=== PATIENT | female | born 1950 | race Caucasian/White ===

== ENCOUNTER → 2017-09-26 10:13 | Outpatient (CLI) | payer MEDICARE, SELFPAY ==
--- NOTE | 2017-09-26 10:18 | XR_ITS ---
XR DEXA axial skeleton HISTORY: ITS.REASON: OSTEOPOROSIS ORDERING PHYSICIAN: Michael Kendrick MD PATIENT AGE: 67 years COMPARISON: 10/29/2015 FINDINGS: The BMD measured at the Right femoral neck is 0.780 g/cm squared with a T score of -1.9. This is considered Osteopenic according to the World Health Organization criteria. Fracture risk is Moderate. Treatment is advised. L1-L4 density has a T score of -1.8. The L-spine density is decreased by 2%. The hip density is unchanged. IMPRESSION: Osteopenia with moderate fracture risk. Recommend treatment. Suggest follow-up exam September 2019
== END ==
PROVIDERS: Family Provider Internal Medicine Adolescent Medicine; PCP Internal Medicine Adolescent Medicine; Visit Provider Internal Medicine Adolescent Medicine
DX: M81.0 Age-related osteoporosis without current pathological fracture (principal)
CPT/HCPCS: 77080

== ENCOUNTER → 2019-07-30 10:27 | Outpatient (CLI) | payer MEDICARE, SELFPAY ==
--- NOTE | 2019-07-30 11:00 | ECG_ITS ---
APPROVED REPORT Exam: Resting ECG HR:65 bpm ECG Measurements Heart Rate 65 AXES MO 136 P 17 QRSd 82 QRS 3 QT 414 T 101 QTc 430 <Conclusion> Normal sinus rhythm Late r wave progression Abnormal ECG Electronically signed by : Michael Kendrick, 07/31/2019 08:20:36
[2019-07-30 11:15] LABS: Basophils # 0.1 K/mm3 (0-0.2); Basophils % 1.5 % (0.1-2.0); Eosinophils % 0.8 % (0.1-12.0); Hematocrit 42.9 % (37.0-47.0); Lymphocytes # 0.9 K/mm3 (0.7-4.5); Lymphocytes % 26.2 % (10-50); Mean Corpuscular Hemoglobin 30.4 pg (27.0-31.2); Mean Corpuscular Volume 87.1 fl (81-99); Mean Platelet Volume 7.9 fl (7.4-10.4); Monocytes # 0.2 K/mm3 (0.1-1.0); Neutrophils # 2.1 K/mm3 (1.8-7.8); Neutrophils % 64.5 % (37.0-80.0); Platelet Count 243 K/mm3 (142-424); Red Blood Count 4.93 M/mm3 (4.20-5.40); Red Cell Distribution Width 12.8 % (11.5-17.5); White Blood Count 3.2 K/mm3 (4.8-10.8)
[2019-07-30 12:13] LABS: Chloride 102 mmol/L (98-107)
[2019-07-30 12:14] LABS: Sodium 138 mmol/L (136-145)
[2019-07-30 12:16] LABS: Alanine Aminotransferase 25 U/L (12-78); Alkaline Phosphatase 69 U/L (38-126); Aspartate Amino Transferase 25 U/L (14-36); Bilirubin,Total 1.3 mg/dl (0.2-1.3); Blood Urea Nitrogen 21 mg/dl (7-17); Estimated Glomerular Filt Rate 71 ml/min (>60); GFR (African American) 86 ML/MIN (>60)
[2019-07-30 12:17] LABS: Albumin Level 4.7 g/dl (3.5-5.0); Albumin/Globulin Ratio 1.9 (1.1-1.8); Calcium 9.3 mg/dl (8.4-10.2); Carbon Dioxide 26 mmol/L (22.0-30.0); Globulin 2.5 g/dL (1.3-3.2); Glucose 91 mg/dl (74-100); Total Protein,Serum 7.2 g/dl (6.3-8.2)
[2019-07-31 13:54] LABS: Covid-19 Nasal PCR Sendout Lex NOT DETECTED
--- NOTE | 2019-07-31 15:37 | PC.NURSE ---
notified pt and Miriam RN of negative COVID 19 results.
== END ==
PROVIDERS: Visit Provider Otolaryngology
DX: Z01.818 Encounter for other preprocedural examination (principal); C44.311 Basal cell carcinoma of skin of nose
CPT/HCPCS: 36415; 80053; 85025; 93005; U0003

== ENCOUNTER 2019-08-01 07:14 | Day surgery (SDC) | payer MEDICARE, SELFPAY ==
[2019-07-30 13:54] VITALS: BMI 27.4
[2019-08-01 07:33] VITALS: BP 150/80; PULSE 88; RESP 18; TEMP 36.9; O2SAT 96
[2019-08-01 09:42] VITALS: BP 139/92; PULSE 69; RESP 18; TEMP 36.4; O2SAT 97
[2019-08-01 09:57] VITALS: BP 151/96; PULSE 90; RESP 18; O2SAT 97
--- NOTE | 2019-08-01 10:00 | P.PN_ITS ---
[facility] [place] Anesthesia Checklist - Patient Identification Patient Identification: Arm Band - Structural Data Admitted From: Home Planned Operative Procedure/s: excision neoplasm tip of nose Consent for Planned Operative Procedure(s) Verified: Yes Verified Documents: Surgical Consent, History and Physical - NPO Status Verified Time NPO: 00:00 - Additional verifications Anesthesia Reactions: No Hx Blood Transfusions: No Blood Transfusion Reaction: No - Airway Assessment C-Spine Mobility Assessed: Yes (mp2) TMJ Mobility Assessed: Yes Dentition: Good Dentition - Neurological Assessment Level of Consciousness: Awake, Alert - Anesthesia Plan Anesthesia Risk discussed: Yes Anesthesia Plan: Verified ASA Class: II Anesthesia Type: MAC [facility] [place] History I have reviewed the patient's past medical history: Yes Medical History: Reports:: Anxiety, Hyperlipidemia Denies:: Cancer, Diabetes Mellitus Type 1, Diabetes Mellitus Type 2, Internal Pacemaker, MRSA, Seizures *Have you ever received a pneumonia vaccine?: Yes *Have you received a flu vaccine this season?: Yes Other Medical History: Reports: Hypothyroidism. Denies: Blood Transfusion Reaction Anesthesia experience/problems:: nac Other Surgeries: Yes: Tubal Ligation. No: Pacemaker Amputation: No Fractures: No - *Social History Educational Level: Completed High School Smoking Status: Never smoker Alcohol Intake: never Substance Use Type: denies use *Occupational Status:: retired Housing: house Household Members: spouse *Travel in the last 8 weeks: None Family Hx:: Cancer, Diabetes, Heart Attack, Hyperlipidemia, Hypertension, Kidney Disease, Stroke, Thyroid Disorder
[2019-08-01 10:12] VITALS: BP 135/72; PULSE 80; RESP 18; O2SAT 98
--- NOTE | 2019-08-01 12:43 | P.OP_ITS ---
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 Leukopenia Post-op Diagnosis:: same Procedure performed:: Excision of malignant neoplasm nasal tip 2.2 cm with full-thickness skin graft repair Surgeon:: Clayton De Oliveira MD WRAPPING CHECKER:: Deniz Mar Anesthesia: MAC Estimated blood loss (mL): 4 Operative findings:: same Operative note:: With the patient under a MAC anesthetic the face was prepped and draped. The eyes were protected with Steri-Strips. The left ear was prepped and draped. The perilesional area on the nasal tip was infiltrated with a total of 3 cc of 2% lidocaine with epi. The marcie out was incised and the lesion was excised to the level of the lower lateral cartilages. The specimen was tagged and submitted for pathology. The left ear which had been prepped previously was infiltrated with 3 cc of 2% lidocaine with epinephrine on the posterior aspect. A donor skin graft measuring 2.5 cm was marked out on the posterior aspect of the left ear. Skin subcutaneous tissue was incised and the graft was excised, using tenotomy scissors the graft was defatted. The donor site bleeding was stopped with cautery and the donor site defect was repaired with a continuous 4- 0 nylon suture. a Dermabond dressing was applied. The graft was then coapted to the recipient site with multiple interrupted 4-0 nylon sutures. An excellent adaptation was obtained. A cottonoid bolster was placed over the graft in order to put some pressure on the graft site. A Dermabond dressing and a dot dressing was applied. The patient tolerated the procedure well and was sent to recovery in good general condition. Condition: stable Disposition: PACU Complications:: none
== END 2019-08-01 10:12 | disposition home or self-care (01) ==
LOC: OR 07:16
PROVIDERS: PCP Internal Medicine Adolescent Medicine; Visit Provider Otolaryngology
DX: C44.311 Basal cell carcinoma of skin of nose (principal); E03.9 Hypothyroidism, unspecified; Z79.899 Other long term (current) drug therapy
CPT/HCPCS: 11643; 15760; 88305; 96374; 96375

== ENCOUNTER → 2019-10-09 16:19 | Outpatient (CLI) | payer MEDICARE, SELFPAY ==
--- NOTE | 2019-10-09 16:28 | XR_ITS ---
PROCEDURE: XR CHEST 2V CLINICAL HISTORY: LEFT SIDED CHEST WALL Posttraumatic pain COMPARISON: CXR CHEST(2 VIEWS-NOT PORTABLE) from 05/13/[address] CHEST W/ CONTRAST from 05/20/2013 CXR CHEST(2 VIEWS-NOT PORTABLE) from 04/25/2015 FINDINGS: The cardiomediastinal silhouette and pulmonary vascularity are within normal limits. The lungs are clear without infiltrates, suspicious nodules, or pleural effusions. There are nondisplaced fractures of the left 5th and 6th ribs which are better demonstrated on the rib detail images. No evidence of pneumothorax IMPRESSION: Nondisplaced left 5th and 6th rib fractures Dictated by: Dmitriy Quezada MD 10/09/2019 17:52 Electronically signed by Dmitriy Quezada MD in [place] 10/09/2019 17:52
--- NOTE | 2019-10-09 16:29 | XR_ITS ---
PROCEDURE: XR RIBS LT 2V CLINICAL INDICATION: LEFT SIDED CHEST WALL PAIN Injury with pain COMPARISON: No exams were available for comparison FINDINGS: Nondisplaced fractures are present involving the left 5th and 6th ribs anterior laterally. IMPRESSION: Nondisplaced left 5th and 6th rib fracture Dictated by: Dmitriy Quezada MD 10/09/2019 17:51 Electronically signed by Dmitriy Quezada MD in [place] 10/09/2019 17:51
== END ==
PROVIDERS: PCP Internal Medicine Adolescent Medicine; Visit Provider Internal Medicine Adolescent Medicine
DX: R07.89 Other chest pain (principal)
CPT/HCPCS: 71046; 71100

== ENCOUNTER 2020-09-01 15:48 | Emergency (ER) | payer MEDICARE, SELFPAY ==
[2020-09-01 15:50] VITALS: BP 106/58; PULSE 84; RESP 16; TEMP 36.6; O2SAT 97; BMI 26.6
--- NOTE | 2020-09-01 15:53 | XR_ITS ---
PROCEDURE: XR ANKLE RT MIN 3V CLINICAL INDICATION: FELL DOWN RAMP Pain COMPARISON: No exams were available for comparison FINDINGS: There is a minimally displaced oblique fracture involving the distal aspect the fibula exiting medially at the level of the ankle joint with some mild widening of the ankle mortise. There is overlying soft tissue swelling. The joint spaces are well-preserved. No significant degenerative/arthritic changes. No erosive changes evident. Other findings:None. IMPRESSION: Mildly displaced fracture distal fibula with mild widening of the ankle mortise Dictated by: Dmitriy Quezada MD 09/01/2020 16:41 Dmitriy Quezada MD in [place] 09/01/2020 16:41
--- NOTE | 2020-09-01 15:53 | XR_ITS ---
PROCEDURE: XR FOOT RT MIN 3V CLINICAL INDICATION: FELL DOWN RAMP Pain COMPARISON: No exams were available for comparison FINDINGS: There are osteoarthritic changes at the 1st MTP joint. Bony hypertrophy involves the distal aspect of the 1st metatarsal. No fracture or dislocation. 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
--- NOTE | 2020-09-01 16:38 | HMH.EDUTC ---
[facility] [place] Disposition Clinical Impression: Fracture of distal fibula Qualifiers: Encounter type: initial encounter Fracture type: closed Fracture morphology: unspecified fracture morphology Laterality: right Qualified Code(s): S82.831A - Other fracture of upper and lower end of right fibula, initial encounter for closed fracture Disposition: Home, Self-Care Condition on Discharge: Good Instructions: How to Choose and Use a Wheelchair, How to Use Crutches, Ankle Fracture, DI for Ankle Fracture, How To Perform RICE (Rest, Ice, Compress, Elevate) Additional Instructions: *No weight bearing use crutches or wheel chair to get around *RICE, Rest the extremity, Ice 15-20 minutes 3-4 times daily, Compress- wear the joo wrap as discussed as much as possible to help reduce swelling and pain, Elevate the extremity when at rest *Joo wrap/Orthoglass is for support and help control swelling, Be sure that is not to tight but not to loose either *Elevate when resting *Etodolac as prescribed for pain an inflammation. If need something more can take Tylenol in between doses of Etodolac to help Immediately follow up with your family doctor for new or worsening of symptoms, or no noticeable improvement over the next 3-5 days Follow up with Dr Mckeon as scheduled on Monday09/07/20 at 930am Straight to ER if any life threatening symptoms Prescriptions: Wheelchair 1 each MISCELLANE DIRECTED #1 each Prescription Printed Referrals: Michael Kendrick MD [Primary Care Provider] - Leonora Zimmerman DPM [Staff Physician] - 09/07/20 9:30 am Time of Disposition: 17:44 Medical Decision Making - Judson Inquiry Pt receiving controlled substance: No Judson was queried for this patient: No Vital Signs: 09/01/20 15:50 09/01/20 17:11 Temperature 97.8 F 97.8 F Temperature Source Oral Pulse Rate 84 Pulse Rate [Right Brachial] 84 Respiratory Rate 16 16 Blood Pressure 106/58 L Blood Pressure [Right Arm] 106/58 L Blood Pressure Mean [Right Arm] 74 Blood Pressure Source [Right Arm] Automatic Cuff Blood Pressure Position [Right Arm] Sitting 02 Sat by Pulse Oximetry 97 Oxygen Delivery Method Room Air - Radiology Data #1 Image(s): Foot/Toes Image Reviewed: Yes I have reviewed radiologist's interpretation 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 #2 Image(s): Ankle Image Reviewed: Yes I have reviewed radiologist's interpretation Mildly displaced fracture distal fibula with mild widening of the ankle mortise - Physician Consults Physician Consulted: Elsie Time: 16:50 Reason -: Podiatry Eval/Care Comment/Response: Spoke with Alisa Oliveirakindra from Podiatry Clinic and informed her of finding on Xray of fracture of mildly displaced distal fibula fracture and her and Dr Zimmerman viewed xray and agreed they advised would come to [facility] and place patient in orthoglass splint and discuss further treatment and appointment Medical Decision Narrative: Initially called Orthopedic clinic and informed them of patient in [facility] with distal fibula ankle fracture and advised to call Podiatry Dr Zimmerman at bedside placing orthoglass splint and talking with patient, Dr Zimmerman spoke with patient about plan for treatment and appointment on Monday and need to repeat xrays prior to her appointment and patient verbalized understanding, orthoglass splint placed by Dr Zimmerman and Dr Zimmerman advised to place patient on crutches and write for wheelchair to aid in patient getting around Patient was educated on RICE and advised No weight bearing on foot/ankle and patient verbalized understanding patient advised that she has Etodolac at home that she is prescribed and advised to continue taking it as prescribed for pain [facility] [place] HPI - General Stated complaint: AO 09/01@1500@home Injured R Ankle Time Seen by Provider: 09/01/20 16:38 Mode of Arrival: Ambulatory Source of Information: Patient, Spouse Limitations: No Limitations Description of Symptoms (Recalled from Triage Doc. by RN): PATIENT C
[2020-09-01 17:11] VITALS: BP 106/58; PULSE 84; RESP 16; TEMP 36.6; O2SAT 97
== END 2020-09-01 17:45 | disposition home or self-care (01) ==
PROVIDERS: Emergency Provider Nurse Practitioner; PCP Internal Medicine Adolescent Medicine
DX: S82.831A Other fracture of upper and lower end of right fibula, initial encounter for closed fracture (principal); W01.0XXA Fall on same level from slipping, tripping and stumbling without subsequent striking against object, initial encounter; Y92.019 Unspecified place in single-family (private) house as the place of occurrence of the external cause; F41.9 Anxiety disorder, unspecified; E78.5 Hyperlipidemia, unspecified; E03.9 Hypothyroidism, unspecified
CPT/HCPCS: 29515; G0463; 73610; 73630; 99203

== ENCOUNTER → 2020-09-07 09:47 | Outpatient (CLI) | payer MEDICARE, SELFPAY ==
--- NOTE | 2020-09-07 09:56 | XR_ITS ---
PROCEDURE: XR ANKLE WT BEARING RT MIN 3V CLINICAL INDICATION: ankle pain COMPARISON: CR XR ANKLE RT MIN 3V from 09/01/2020 FINDINGS: Oblique fracture of the distal fibula again noted with mild lateral displacement of the distal fracture fragment. Ankle joint mortise appears intact with weight-bearing. There is overlying splint material in place. No acute abnormality. IMPRESSION: Oblique fracture of the distal fibula again noted similar to prior exam with overlying splint material in place. Ankle joint mortise appears intact. Dictated by: Juan Singh 09/07/2020 10:10 Juan Singh in [place] 09/07/2020 10:10
== END ==
PROVIDERS: PCP Internal Medicine Adolescent Medicine; Visit Provider Podiatrist
DX: S82.831A Other fracture of upper and lower end of right fibula, initial encounter for closed fracture (principal)
CPT/HCPCS: 73610

== ENCOUNTER → 2020-10-05 11:37 | Outpatient (CLI) | payer MEDICARE, SELFPAY ==
--- NOTE | 2020-10-05 11:44 | XR_ITS ---
PROCEDURE: XR ANKLE WT BEARING RT MIN 3V CLINICAL INDICATION: FRACTURE FOLLOW UP COMPARISON: CR XR ANKLE RT MIN 3V from 09/01/2020 CR XR ANKLE WT BEARING RT MIN 3V from 09/07/2020 FINDINGS: Bones: There is an oblique fracture involving the distal fibula at the level of the ankle joint with minimal lateral displacement of the distal fracture fragment and with good alignment. The ankle mortise appears slightly widened similar to the previous exam. Joints: The joint spaces are well-preserved. No significant degenerative/arthritic changes. No erosive changes evident. Other findings:Cast is in place. IMPRESSION: Status post closed reduction distal fibular fracture with good alignment and mild widening of the ankle mortise similar to the previous exam except for placement of the splint with a cast. Dictated by: Dmitriy Quezada MD 10/05/2020 12:20 Dmitriy Quezada MD in [place] 10/05/2020 12:20
== END ==
PROVIDERS: PCP Internal Medicine Adolescent Medicine; Visit Provider Podiatrist
DX: T14.8XXA Other injury of unspecified body region, initial encounter (principal); S82.891D Other fracture of right lower leg, subsequent encounter for closed fracture with routine healing
CPT/HCPCS: 73610

== ENCOUNTER → 2020-11-05 11:08 | Outpatient (CLI) | payer MEDICARE, SELFPAY ==
--- NOTE | 2020-11-05 11:15 | XR_ITS ---
PROCEDURE: XR ANKLE WT BEARING RT MIN 3V CLINICAL INDICATION: fracture follow up COMPARISON: CR XR ANKLE RT MIN 3V from 09/01/2020 CR XR ANKLE WT BEARING RT MIN 3V from 09/07/2020 CR XR ANKLE WT BEARING RT MIN 3V from 10/05/2020 FINDINGS: The cast has been removed. Minimally displaced fracture once again noted involving the distal aspect of the fibula with the medial aspect of the fracture at the level of the ankle joint. Callus formation is developing at the fracture site. The ankle mortise is slightly widened. Talar dome has an unremarkable appearance. There is mild displacement of the distal fracture fragment posteriorly. IMPRESSION: No change healing mildly displaced distal fibular fracture with mild widening of the ankle mortise. Dictated by: Dmitriy Quezada MD 11/05/2020 11:30 Dmitriy Quezada MD in [place] 11/05/2020 11:30
== END ==
PROVIDERS: PCP Internal Medicine Adolescent Medicine; Visit Provider Podiatrist
DX: T14.8XXA Other injury of unspecified body region, initial encounter (principal); S82.891G Other fracture of right lower leg, subsequent encounter for closed fracture with delayed healing
CPT/HCPCS: 73610

== ENCOUNTER → 2020-12-14 09:20 | Outpatient (CLI) | payer MEDICARE, SELFPAY ==
--- NOTE | 2020-12-14 09:24 | XR_ITS ---
PROCEDURE: XR ANKLE WT BEARING RT MIN 3V CLINICAL INDICATION: fracture follow up COMPARISON: CR XR ANKLE RT MIN 3V from 09/01/2020 CR XR ANKLE WT BEARING RT MIN 3V from 09/07/2020 CR XR ANKLE WT BEARING RT MIN 3V from 10/05/2020 CR XR ANKLE WT BEARING RT MIN 3V from 11/05/2020 FINDINGS: There is a minimally displaced oblique distal fibular fracture. The distal fracture fragment is displaced dorsally and laterally by 2 mm overall not significantly changed. There is minimal widening of the ankle mortise. IMPRESSION: No change minimally displaced distal fibular fracture with mild widening of the ankle mortise Dictated by: Dmitriy Quezada MD 12/14/2020 15:50 Dmitriy Quezada MD in [place] 12/14/2020 15:50
== END ==
PROVIDERS: PCP Internal Medicine Adolescent Medicine; Visit Provider Podiatrist
DX: S82.839A Other fracture of upper and lower end of unspecified fibula, initial encounter for closed fracture (principal); Z20.822 Contact with and (suspected) exposure to COVID-19
CPT/HCPCS: 73610; C9803; U0003; U0005

== ENCOUNTER 2020-12-16 06:40 | Day surgery (SDC) | payer MEDICARE, SELFPAY ==
[2020-12-14 14:29] VITALS: BMI 26.6
[2020-12-16 07:24] VITALS: BP 138/81; PULSE 86; RESP 18; TEMP 36.2; O2SAT 99
--- NOTE | 2020-12-16 07:57 | HMH.ANESCL ---
[facility] Anesthesia Checklist - Patient Identification Patient Identification: Arm Band, Verbal (Name & ) - Structural Data Admitted From: Home Planned Operative Procedure/s: colonoscopy Consent for Planned Operative Procedure(s) Verified: Yes Verified Documents: History and Physical - NPO Status Verified Time NPO: 00:00 - Additional verifications Patient : No Anesthesia Reactions: No Hx Blood Transfusions: No Blood Transfusion Reaction: No Cephalosporin Allergy: No Previous Colonoscopy: Yes - Cardiovascular Assessment Heart Sounds: S1 & S2 Pulse Strength: Baseline Pulse Rhythm: Regular Peripheral Edema: No - Airway Assessment C-Spine Mobility Assessed: Yes TMJ Mobility Assessed: Yes Dentition: Good Dentition - Neurological Assessment Level of Consciousness: Awake, Alert, Appropriate Hx Seizures: No Numbness or tingling in extremities: No - Anesthesia Plan Anesthesia Risk discussed: Yes Anesthesia Plan: Verified ASA Class: II Anesthesia Type: MAC [facility] History I have reviewed the patient's past medical history: Yes Medical History: Reports:: Anxiety, Hyperlipidemia Denies:: Cancer, Diabetes Mellitus Type 1, Diabetes Mellitus Type 2, Internal Pacemaker, MRSA, Seizures *Have you ever received a pneumonia vaccine?: Yes *Have you received a flu vaccine this season?: Yes Other Medical History: Reports: Hypothyroidism. Denies: Blood Transfusion Reaction Anesthesia experience/problems:: none Other Surgeries: Yes: Colonoscopy, Skin Cancer Excision, Tubal Ligation. No: Pacemaker Amputation: No Fractures: Yes (right ankle) - *Social History Last grade of school completed: High school graduate Smoking Status: Never smoker Alcohol Intake: never Alcohol Intake Frequency:: other Substance Use Type: denies use *Occupational Status:: retired Housing: house Household Members: spouse *Travel in the last 8 weeks: None - Psychiatric History Pschychiatric History:: Reports:: Anxiety Family Hx:: Cancer
[2020-12-16 07:59] VITALS: O2SAT 96
--- NOTE | 2020-12-16 08:37 | HMH.SCOPE ---
- Procedure: Date: 12/16/20 Patient Date of :: 1950 Procedure Performed:: Total colonoscopy with polypectomy by snare and biopsy forceps Indications:: Patient is a 70-year-old female who presents for colonoscopy. I had performed colonoscopy on her on 10/12/2010. She had diverticulosis but no adenomatous polyps. Patient does state that relatively recently subsequently one of her sisters has been diagnosed with colon cancer. She also states that one of her nephews has been diagnosed with colon cancer. Also, I had performed colonoscopy on another sister recently and she had adenomatous polyps. Patient is without complaints. She does state that she has a rectocele which has been present for a longstanding time causing some minor constipation occasionally. Performing Provider:: Edilson Varma MD Referring Provider:: Michael Kendrick MD Sedation:: MAC sedation Procedure:: Patient was positioned in lateral position. Adequate intravenous sedation was achieved. Digital examination was performed which was unremarkable. Variable stiffness Olympus colonoscope was inserted via the anus. Is advanced to the cecum. Ileocecal valve was clearly identified. She did have some significant floppiness and redundancy of the sigmoid colon. Within the ascending colon just distal to the ileocecal valve there was a ridge polyp which was removed with cold cutting snare. This could be serrated adenoma. Colonoscope was withdrawn through the remainder of the colon. The distal transverse colon there was a possible serrated adenoma removed with cold snare. She had significant sigmoid diverticulosis. At the rectosigmoid region there was a hyperplastic appearing polyp removed with biopsy forceps. Retroflexion within the rectum revealed nonpathologic internal hemorrhoids. Colonoscope was withdrawn. Findings:: Polyps as noted above Significant sigmoid diverticulosis Nonpathologic internal hemorrhoids Recommendations:: Pending pathology possibly repeat colonoscopy 3 years given family history and polyps Complications:: None immediately apparent Estimated blood obtained (mL): 2
[2020-12-16 08:39] VITALS: BP 106/50; PULSE 81; RESP 18; TEMP 36.3; O2SAT 95
[2020-12-16 08:49] VITALS: BP 115/71; PULSE 74; RESP 18; O2SAT 94
[2020-12-16 08:59] VITALS: BP 132/67; PULSE 69; RESP 18; O2SAT 95
[2020-12-16 09:09] VITALS: BP 126/72; PULSE 70; RESP 18; O2SAT 95
== END 2020-12-16 09:09 | disposition home or self-care (01) ==
LOC: OUTP 06:42
PROVIDERS: PCP Internal Medicine Adolescent Medicine; Visit Provider Surgery
PROC: 0DJD8ZZ Inspection of Lower Intestinal Tract, Via Natural or Artificial Opening Endoscopic (ICD-10-PCS; principal; 2020-12-16 08:30)
DX: Z12.11 Encounter for screening for malignant neoplasm of colon (principal); K56.2 Volvulus; K63.5 Polyp of colon; K57.32 Diverticulitis of large intestine without perforation or abscess without bleeding; K64.0 First degree hemorrhoids; Z80.0 Family history of malignant neoplasm of digestive organs; E78.5 Hyperlipidemia, unspecified; F41.9 Anxiety disorder, unspecified
CPT/HCPCS: 45380; 45385; 88305

== ENCOUNTER → 2020-12-21 07:41 | Outpatient (CLI) | payer MEDICARE, SELFPAY ==
--- NOTE | 2020-12-21 07:42 | CT_ITS ---
PROCEDURE: CT ANKLE RT WO CON CLINICAL HISTORY: fracture evaluation COMPARISON: CR XR ANKLE RT MIN 3V from 09/01/2020 CR XR ANKLE WT BEARING RT MIN 3V from 12/14/2020 TECHNIQUE: Axial images obtained with sagittal and coronal reformats. All CT scans at the facility use one or more dose reduction, viz: automated exposure control, ma/kV adjustment per patient size (including targeted exams where dose is matched to indication, i.e. head), or iterative reconstruction technique. FINDINGS: There is a minimally displaced fracture oblique in nature involving the distal fibula directed posterior to anterior in oblique nature exiting at the level of ankle joint. There is 3 mm dorsal and 2 mm lateral displacement of the distal fracture fragment. There appears to be non bony union. There is sclerosis of the fracture margins. The ankle mortise is slightly widened with minimal lateral displacement of the talus. Small sclerotic focus involves the neck of the talus medially and may be due to a bone island. Osteoarthritic changes are present at the 1st MTP joint. There is some mild soft tissue swelling at the ankle laterally. IMPRESSION: 1. Non bony union of the mildly displaced oblique distal fibular fracture with minimal lateral and anterior displacement of the distal fracture fragment with mild widening of the ankle mortise Dictated by: Dmitriy Quezada MD 12/21/2020 13:31 Dmitriy Quezada MD in [place] 12/21/2020 13:31
== END ==
PROVIDERS: PCP Internal Medicine Adolescent Medicine; Visit Provider Podiatrist
DX: S82.831A Other fracture of upper and lower end of right fibula, initial encounter for closed fracture (principal); S82.891A Other fracture of right lower leg, initial encounter for closed fracture
CPT/HCPCS: 73700

== ENCOUNTER 2020-12-24 11:00 | Outpatient (RCR) | payer MEDICARE, SELFPAY ==
--- NOTE | 2020-10-27 09:50 | HMH.PTOPEV ---
PT Outpatient Evaluation Rehab PT Outpatient Evaluation Start: 10/27/20 09:01 Freq: Status: Active Protocol: Document 10/27/20 09:21 CESAREDUARDO (Rec: 10/27/20 09:49 UTEYAKOV [id number]) Electronically Signed By Bishop Tejeda PT 10/27/20 09:21 Outpatient Therapy Subjective History Subjective History THis is the initial Physical Therapy evaluation for Ira Chin. Pt is a 70 y/o female referred to PT for rehab s/p R ankle fx. Pt reports original injury occurred . Pt states she was going down a ramp and slipped. Pt states she broke her ankle, was splinted for a week, put in a cast until 10/20, then put in boot for protection. Pt is to increase WBing w/ crutches over 2 weeks, then proceed to wbing w/out crutches, then proceed to no boot. Chief Complaint Pain,Stiff,Weakness Symptom Type Ache,Throb,Sharp,Dull,Burning, Numbness,Tingling Symptoms Relieved By Rest/Positioning Symptoms Aggravated By Standing,Physical Activity, Walking Prior Functional Limitations None Current Functional Limitations Housework,Standing,Recreation Activity,Walking,Stairs, Balance Symptom Description Intermittent Level of pain today (0-10) 0 Pain scale - at its best (0-10) 0 Pain scale - at its worst (0-10) 6 Ankle/Foot Eval Gait Observation General Gait Pattern Observation Antalgic Gait Assistive Device Ambulation Assistive Device Axillary Crutches ROM right Ankle/Foot Dorsiflexion w/Knee Extended 0 Active Range Motion (degrees) Ankle/Foot Plantar Flexion Active Range 25 of Motion (degrees) Ankle/Foot Eversion Active Range of 10 Motion (degrees) Ankle/Foot Inversion Active Range of 20 Motion (degrees) MMT Ankle Dorsiflexion Strength Grade 3- Fair- Ankle Plantarflexion Strength Grade 3- Fair- Foot Eversion Strength Grade 3- Fair- Foot Inversion Strength Grade 3- Fair- Outpatient Therapy Assessment Impairments Problems/Impairmments Palpation Tenderness,Impaired Range of Motion,Impaired Strength,Impaired Walking, Impaired Standing,Impaired
== END 2020-12-24 11:05 | disposition home or self-care (01) ==
LOC: PT 11:00
PROVIDERS: PCP Internal Medicine Adolescent Medicine; Visit Provider Podiatrist
DX: S82.891A Other fracture of right lower leg, initial encounter for closed fracture (principal); S82.831A Other fracture of upper and lower end of right fibula, initial encounter for closed fracture
CPT/HCPCS: 97014; 97033; 97110; 97112; 97140; 97163; 97164; G0283

== ENCOUNTER → 2021-01-13 09:49 | Outpatient (CLI) | payer MEDICARE, SELFPAY ==
--- NOTE | 2021-01-13 09:50 | US_ITS ---
APPROVED REPORT Exam Type: Ankle to Brachial Index Feather Curling Machine Operator: RT Moe(R) Indications Claudication: Bilaterally Rest Pain: Bilaterally right ankle fracture Risk Factors Hyperlipidemia Pressures/Indices Right Indices Left Indices Brachial 129.00 mmHg Brachial 120.00 mmHg Low Thigh 145.00 mmHg 1.12 Low Thigh 160.00 mmHg 1.24 Calf 155.00 mmHg 1.20 Calf 154.00 mmHg 1.19 Ankle(PT) 161.00 mmHg 1.25 Ankle(PT) 158.00 mmHg 1.22 Ankle(DP) 149.00 mmHg 1.16 Ankle(DP) 156.00 mmHg 1.21 Digit 85.00 mmHg 0.66 Digit 101.00 mmHg 0.78 Findings RT MARGI=1.25 LT MARGI=1.22 RT TBI=0.66 LT TBI=0.78 Normal pulses Normal waveforms Conclusion RT MARGI=1.25 LT MARGI=1.22 RT TBI=0.66 LT TBI=0.78 Normal pulses Normal waveforms Normal appearing resting noninvasive lower extremity arterial study. Electronically signed by : Dmitriy Quezada MD 01/13/2021 18:38:35
== END ==
PROVIDERS: PCP Internal Medicine Adolescent Medicine; Visit Provider Podiatrist
DX: R09.89 Other specified symptoms and signs involving the circulatory and respiratory systems (principal)
CPT/HCPCS: 93923

== ENCOUNTER → 2021-02-15 09:41 | Outpatient (CLI) | payer MEDICARE, SELFPAY ==
--- NOTE | 2021-02-15 09:46 | XR_ITS ---
PROCEDURE: XR ANKLE WT BEARING RT MIN 3V CLINICAL INDICATION: fracture evaluation COMPARISON: CR XR ANKLE WT BEARING RT MIN 3V from 09/07/2020 CR XR ANKLE WT BEARING RT MIN 3V from 10/05/2020 CR XR ANKLE WT BEARING RT MIN 3V from 11/05/2020 CR XR ANKLE WT BEARING RT MIN 3V from 12/14/2020 FINDINGS: Minimally displaced fracture once again noted involving the distal fibula overall not significantly changed. Ankle mortise appears preserved. IMPRESSION: No change mildly displaced distal fibular fracture Dictated by: Dmitriy Quezada MD 02/15/2021 11:05 Dmitriy Quezada MD in [place] 02/15/2021 11:05
== END ==
PROVIDERS: PCP Internal Medicine Adolescent Medicine; Visit Provider Podiatrist
DX: T14.8XXA Other injury of unspecified body region, initial encounter (principal); S82.831K Other fracture of upper and lower end of right fibula, subsequent encounter for closed fracture with nonunion; S82.891K Other fracture of right lower leg, subsequent encounter for closed fracture with nonunion; S99.911D Unspecified injury of right ankle, subsequent encounter; M25.471 Effusion, right ankle
CPT/HCPCS: 73610

== ENCOUNTER → 2021-02-25 09:23 | Outpatient (CLI) | payer MEDICARE, SELFPAY ==
--- NOTE | 2021-02-25 09:25 | XR_ITS ---
PROCEDURE: XR DEXA AXIAL SKELETON CLINICAL HISTORY: OSTEOPOROSIS COMPARISON: CR DEXAAX XR DEXA axial skeleton from 09/26/2017 FINDINGS: The right hip BMD is 0.647 with a T-score of -1.8. The left hip BMD is 0.726 with a T-score of -1.8. The lumbar spine BMD is 0.847 with a T-score of -1.8. Previously the lowest density was in the right femoral neck with a T-score of -1.9 IMPRESSION: This patient is considered osteopenic according to the World Health Organization criteria. Bone density is between 10 and 25 percent below young normal. Fracture risk is moderate. Treatment is advised. Based on these results a follow-up exam is recommended in 2 year. Dictated by: Dmitriy Quezada MD 02/25/2021 10:28 Dmitriy Quezada MD in [place] 02/25/2021 10:28
== END ==
PROVIDERS: PCP Internal Medicine Adolescent Medicine; Visit Provider Internal Medicine Adolescent Medicine
DX: M81.0 Age-related osteoporosis without current pathological fracture (principal)
CPT/HCPCS: 77080

== ENCOUNTER → 2021-03-15 10:48 | Outpatient (CLI) | payer MEDICARE, SELFPAY ==
--- NOTE | 2021-03-15 10:52 | XR_ITS ---
PROCEDURE: XR ANKLE WT BEARING RT MIN 3V CLINICAL INDICATION: fracture evaluation COMPARISON: CR XR ANKLE WT BEARING RT MIN 3V from 10/05/2020 CR XR ANKLE WT BEARING RT MIN 3V from 11/05/2020 CR XR ANKLE WT BEARING RT MIN 3V from 12/14/2020 CR XR ANKLE WT BEARING RT MIN 3V from 02/15/2021 FINDINGS: No change in the minimally displaced oblique fracture the distal fibula. Fracture line is still visible. Ankle mortise may be minimally widened. IMPRESSION: No change minimally displaced oblique distal fibular fracture Dictated by: Dmitriy Quezada MD 03/15/2021 17:01 Dmitriy Quezada MD in [facility] 03/15/2021 17:01
== END ==
PROVIDERS: PCP Internal Medicine Adolescent Medicine; Visit Provider Podiatrist
DX: S82.831K Other fracture of upper and lower end of right fibula, subsequent encounter for closed fracture with nonunion (principal); S82.891K Other fracture of right lower leg, subsequent encounter for closed fracture with nonunion
CPT/HCPCS: 73610

== ENCOUNTER → 2021-03-24 08:37 | Outpatient (CLI) | payer MEDICARE, SELFPAY ==
--- NOTE | 2021-03-24 08:37 | CT_ITS ---
PROCEDURE: CT ANKLE RT WO CON CLINICAL HISTORY: FRACTURE EVALUATION COMPARISON: CR XR ANKLE WT BEARING RT MIN 3V from 03/15/2021 TECHNIQUE: Axial images obtained with sagittal and coronal reformats. All CT scans at the facility use one or more dose reduction, viz: automated exposure control, ma/kV adjustment per patient size (including targeted exams where dose is matched to indication, i.e. head), or iterative reconstruction technique. FINDINGS: Oblique minimally displaced fracture once again noted involving the distal fibula. The fracture lines are well corticated consistent with nonunion. There is minimal dorsal displacement of the distal fracture fragment by 3-4 mm as well as minimal lateral displacement of the distal fracture fragment by 2 mm. Fracture extends in an oblique manner from posterior to anterior distally. There is minimal widening of the ankle mortise. A 7 mm sclerotic focus is noted in the neck of the talus medially and may be due to a bone island. Varicosities are present medially about the ankle. Mild soft tissue swelling is present along the tip of the lateral malleolus. 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 Dictated by: Dmitriy Quezada MD 03/24/2021 15:14 Dmitriy Quezada MD in [facility] 03/24/2021 15:14
== END ==
PROVIDERS: PCP Internal Medicine Adolescent Medicine; Visit Provider Podiatrist
DX: M25.471 Effusion, right ankle (principal); M25.571 Pain in right ankle and joints of right foot; S82.891A Other fracture of right lower leg, initial encounter for closed fracture
CPT/HCPCS: 73700

== ENCOUNTER → 2021-06-01 13:28 | Outpatient (CLI) | payer MEDICARE, SELFPAY ==
--- NOTE | 2021-06-01 13:33 | XR_ITS ---
FINAL REPORT CLINICAL HISTORY: fracture follow up COMPARISON: 03/15/2021 FINDINGS: RIGHT ANKLE Three views demonstrate an oblique fracture of the distal fibular metaphysis which appears subacute. The bony alignment is stable. There is calcification adjacent to the lateral talus. Suspect a subchondral cyst or osteochondral lesion of the medial talar dome. IMPRESSION: Fracture as above. Suspect subchondral cyst or osteochondral lesion of the medial talar dome. If indicated, MRI may be helpful. Reviewed, Interpreted and Dictated by Edilson Alvarez III, MD Transcribed by Zina Francis Authenticated by Edilson Alvarez III, MD on 06/01/2021 02:42:51 PM [facility]
== END ==
PROVIDERS: PCP Internal Medicine Adolescent Medicine; Visit Provider Podiatrist
DX: S82.831K Other fracture of upper and lower end of right fibula, subsequent encounter for closed fracture with nonunion (principal); S82.839A Other fracture of upper and lower end of unspecified fibula, initial encounter for closed fracture; S82.891K Other fracture of right lower leg, subsequent encounter for closed fracture with nonunion
CPT/HCPCS: 73610

== ENCOUNTER → 2021-06-07 14:06 | Outpatient (CLI) | payer MEDICARE, SELFPAY ==
[2021-06-07 15:23] LABS: Blood Urea Nitrogen 22 mg/dl (7-17); Estimated Glomerular Filt Rate 71 ml/min (>60); GFR (African American) 85 ML/MIN (>60)
== END ==
PROVIDERS: Visit Provider Podiatrist
DX: Z01.812 Encounter for preprocedural laboratory examination (principal)
CPT/HCPCS: 36415; 82565; 84520

== ENCOUNTER → 2021-06-09 10:24 | Outpatient (CLI) | payer MEDICARE, SELFPAY ==
--- NOTE | 2021-06-09 10:24 | MR_ITS ---
FINAL REPORT CLINICAL HISTORY: fracture evaluation from august 2020 COMPARISON: X-ray dated 06/01/2021 FINDINGS: Multiplanar MR imaging of the right ankle was performed without and with contrast. There is a sub-acute/chronic oblique fracture of the distal fibular metaphysis. There is a focal area of bony union posteriorly but appears to be nonunion of the remainder of the fracture. There is contrast enhancement in the fracture defect and adjacent to the fracture line. A small osteochondral lesion is seen in the medial talar dome measuring 4 mm. There is overlying cartilage loss. There is thickening of the anterior talofibular ligament which may represent sequela of prior partial tear. There is also irregularity of the calcaneofibular ligament which may represent prior partial tear. There is medial subluxation of the peroneus longus and brevis at the inferior tip of the lateral malleolus. There is posterior plantar fasciitis with no evidence of tear. IMPRESSION: Small area of bony fusion in the posterior aspect of the distal fibular fracture with nonunion of the remainder of the fracture. Prior partial tears of the ATFL and CFL. Medial subluxation of the peroneus longus and brevis. Small osteochondral lesion in the medial talar dome. Reviewed, Interpreted and Dictated by Edilson Alvarez III, MD Transcribed by Carol Gillis Authenticated by Edilson Alvarez III, MD on 06/09/2021 03:29:20 PM [facility]
== END ==
PROVIDERS: PCP Internal Medicine Adolescent Medicine; Visit Provider Podiatrist
DX: G89.29 Other chronic pain (principal); M25.571 Pain in right ankle and joints of right foot; S82.831K Other fracture of upper and lower end of right fibula, subsequent encounter for closed fracture with nonunion; S82.891K Other fracture of right lower leg, subsequent encounter for closed fracture with nonunion
CPT/HCPCS: 73723; A9576

== ENCOUNTER → 2021-12-20 11:03 | Outpatient (CLI) | payer MEDICARE, SELFPAY ==
--- NOTE | 2021-12-20 11:10 | XR_ITS ---
FINAL REPORT CLINICAL HISTORY: pain,healing COMPARISON: June 01, 2021 FINDINGS: RIGHT ANKLE Three views of the right ankle were obtained. There is an oblique fracture of the distal fibula. There is no definite bony union. There is generalized osteopenia. The joint spaces and mortise are intact. There is no soft tissue abnormality. IMPRESSION: Oblique fracture of the distal fibula without definite bony union although CT would be more definitive. Reviewed, Interpreted and Dictated by Renzo Preston MD Transcribed by Antonia Herrera Authenticated and [facility]
== END ==
PROVIDERS: PCP Internal Medicine Adolescent Medicine; Visit Provider Nurse Practitioner Family
DX: S82.831A Other fracture of upper and lower end of right fibula, initial encounter for closed fracture (principal)
CPT/HCPCS: 73610

== ENCOUNTER 2022-02-13 16:51 | Emergency (ER) | payer MEDICARE, SELFPAY ==
[2022-02-13 18:29] VITALS: BP 160/87; PULSE 72; RESP 20; TEMP 36.8; O2SAT 99; BMI 27.4
--- NOTE | 2022-02-13 18:33 | ECG_ITS ---
APPROVED REPORT Exam: Resting ECG HR:84 bpm ECG Measurements Heart Rate 84 AXES QRSd 89 QRS 17 QT 382 T 194 QTc 423 Conclusion SUPRAVENTRICULAR RHYTHM LOW QRS VOLTAGE IN PRECORDIAL LEADS [QRS DEFLECTION < 1.0 mV IN CHEST LEADS] ST DEVIATION AND MODERATE T-WAVE ABNORMALITY, CONSIDER ANTEROLATERAL ISCHEMIA [-0.1+ mV T-WAVE IN V3-V6] ST DEVIATION AND MODERATE T-WAVE ABNORMALITY, CONSIDER INFERIOR ISCHEMIA [-0.1+ mV T-WAVE IN II/aVF] ABNORMAL ECG UNCONFIRMED REPORT Electronically signed by : Michael Kendrick MD 02/13/2022 20:48:53
--- NOTE | 2022-02-13 18:33 | XR_ITS ---
PROCEDURE INFORMATION: Exam: XR Chest Exam date and time: 02/13/2022 6:51 PM Age: 71 years old Clinical indication: Other: Dizzy TECHNIQUE: Imaging protocol: Radiologic exam of the chest. Views: 1 view. COMPARISON: CR XR CHEST 2V 10/09/2019 4:30 PM FINDINGS: Lungs: Unremarkable. No consolidation. Pleural spaces: Hazy density density obscures left lateral costophrenic angle. Heart/Mediastinum: Unremarkable. No cardiomegaly. Bones/joints: Minimal degenerative changes of the spine and shoulders. IMPRESSION: Can not exclude small left pleural effusion.
[2022-02-13 18:43] LABS: Chloride 101 mmol/L (98-107); Potassium 3.8 mmoL/L (3.5-5.1); Sodium 140 mmol/L (136-145)
[2022-02-13 18:46] LABS: Anion Gap 14.8 mEq/L (5-15); Blood Urea Nitrogen 21 mg/dl (7-17); Calcium 9.6 mg/dl (8.4-10.2); Carbon Dioxide 28 mmol/L (22.0-30.0); Creatinine Clearance Estimated 61 mL/min (50-200); Estimated Glomerular Filt Rate 70 ml/min (>60); GFR (African American) 85 ML/MIN (>60); Glucose 116 mg/dl (74-100)
[2022-02-13 19:00] VITALS: BP 143/77; PULSE 72; O2SAT 97
[2022-02-13 19:01] LABS: Troponin I < 0.01 ng/ml (0.00-0.034)
--- NOTE | 2022-02-13 19:12 | PC.NURSE ---
DR. ROSS AT BEDSIDE
--- NOTE | 2022-02-13 19:18 | HMH.EDGENADL ---
Discharge Plan Disposition Patient Disposition: Home, Self-Care Condition: Good Prescriptions Prescriptions: New cephalexin 250 mg capsule 250 mg PO Q6H 5 Days Qty: 20 0RF meclizine [Antivert] 25 mg tablet,chewable 25 mg PO QID PRN (Reason: dizziness) Qty: 20 0RF ondansetron 4 mg tablet,disintegrating 4 mg PO Q8H PRN (Reason: nausea and vomiting) Qty: 10 0RF No Action pravastatin 40 mg tablet 40 mg PO DAILY lorazepam 1 mg tablet 1 mg PO DAILY etodolac 400 mg tablet 400 mg PO DAILY levothyroxine 75 mcg tablet 75 mcg PO DAILY Referrals Follow up/Referrals: Michael Kendrick MD [Primary Care Provider] - See instructions Activity Restrictions/Add. Instructions Additional Instructions/Restrictions: Antivert as prescribed for dizziness. Zofran as needed for nausea. Take your lorazepam 3 times a day as this may also help with your dizziness. Additional instructions for URINARY TRACT INFECTION: Take antibiotic as prescribed. See your physician in 2-3 days for follow up and culture results. Return immediately if you have an uncontrollable fever greater than 102 degrees, severe back or abdominal pain, inability to urinate, or repetitive vomiting. Clinical Impressions Clinical Impression: Peripheral vertigo, Cystitis Instructions Patient Instructions: DI for Vertigo, DI for Acute Cystitis Discharge ED Provider: Jae Patel General Adult HPI General Chief complaint: Dizziness Stated complaint: vomiting, dizzy Time Seen by Provider: 02/13/22 19:00 Mode of Arrival: Wheelchair Limitations: No Limitations Description of Symptoms (Recalled from ER Triage Doc. by RN): PT REPORTS SHE WOKE UP DIZZY THIS MORNING NAUSEA AND VOMITING. BURNING WITH URINATION History of Present Illness HPI narrative: Patient states that she has been dizzy since this morning when she woke up. She describes a spinning sensation. When she is walking sometimes she sways from side to side. She says symptoms are worse when she gets up and moves around, when she does so sometimes she will get nausea and vomiting with it. She is not currently nauseated. She says that she had a little headache earlier, none now. No visual disturbance, no diplopia. No numbness or weakness of face arms or legs. No speech difficulty. No auditory symptoms. No prior history of vertigo. She is on lorazepam 1 mg 3 times a day but says that sometimes she takes all 3 doses for the day at one time before bed at night to help her sleep. She did so last night. She has not had any lorazepam today. Also complains of mild dysuria. Related Data Home Medications Medication Instructions Recorded Confirmed etodolac 400 mg tablet 400 mg PO DAILY Arthritis 06/13/19 12/20/21 levothyroxine 75 mcg tablet 75 mcg PO DAILY thyroid 06/13/19 12/20/21 lorazepam 1 mg tablet 1 mg PO DAILY Anxiety 06/13/19 12/20/21 pravastatin 40 mg tablet 40 mg PO DAILY Cholesterol 06/13/19 12/20/21 Previous Rx's Medication Instructions Recorded cephalexin 250 mg capsule 250 mg PO Q6H 5 days #20 caps 02/13/22 meclizine 25 mg chewable tablet 25 mg PO QID PRN dizziness #20 tabs 02/13/22 (Antivert) ondansetron 4 mg disintegrating 4 mg PO Q8H PRN nausea and 02/13/22 tablet vomiting #10 tabs Allergies Allergy/AdvReac Type Severity Reaction Status Date / Time No Known Allergies Allergy Verified 12/20/21 15:02 [facility] Medical History (Updated 02/13/22 @ 20:29 by Jae Patel MD) Anxiety Hyperlipidemia Thyroid disease Family History (Updated 02/13/22 @ 18:34 by Emily Sprague RN) Other No significant family history Social History (Updated 02/13/22 @ 18:34 by Emily Sprague RN) Smoking Status: Never smoker second hand exposure: No alcohol intake: never substance use type: denies use current occupational status: retired Travel in the last 8 weeks: None household members: spouse housing: house c
[2022-02-13 19:23] LABS: Basophils % 0.5 % (0.1-2.0); Eosinophils % 0.2 % (0.1-12.0); Hematocrit 45.4 % (37.0-47.0); Hemoglobin 15.4 g/dL (12.2-16.2); Lymphocytes # 0.7 K/mm3 (0.7-4.5); Lymphocytes % 8.5 % (10-50); Mean Corpuscular Hemoglobin 31.2 pg (27.0-31.2); Mean Corpuscular Volume 91.6 fl (81-99); Mean Platelet Volume 8.4 fl (7.4-10.4); Monocytes # 0.4 K/mm3 (0.1-1.0); Monocytes % 4.1 % (1.7-9.3); Neutrophils # 7.6 K/mm3 (1.8-7.8); Neutrophils % 86.7 % (37.0-80.0); Platelet Count 260 K/mm3 (142-424); Red Blood Count 4.95 M/mm3 (4.20-5.40); Red Cell Distribution Width 13.1 % (11.5-17.5); White Blood Count 8.7 K/mm3 (4.8-10.8)
[2022-02-13 19:27] LABS: MANUAL DIFFERENTIAL MANUAL DIFFERENTIAL (MANUAL DIFF)
--- NOTE | 2022-02-13 19:29 | ECG_ITS ---
APPROVED REPORT Exam: Resting ECG HR:79 bpm ECG Measurements Heart Rate 79 AXES DC 156 P 41 QRSd 86 QRS 8 QT 376 T 184 QTc 410 Conclusion SINUS RHYTHM LOW QRS VOLTAGE IN PRECORDIAL LEADS [QRS DEFLECTION < 1.0 mV IN CHEST LEADS] NONSPECIFIC T-WAVE ABNORMALITY ABNORMAL ECG UNCONFIRMED REPORT Electronically signed by : Michael Kendrick MD 02/14/2022 19:46:11
[2022-02-13 19:30] LABS: Lymphocytes % 5 % (10-50); Monocytes % 1 % (2-9); Neutrophils % 90 % (42-76); Platelet Estimate Normal; RBC Morphology Normal; Total Cells Counted 100
--- NOTE | 2022-02-13 19:40 | PC.NURSE ---
Pt attempted to provide urine sample and was unable to at this time.
[2022-02-13 19:52] LABS: Microscopic, Urine URINE MICROSCOPIC (MICROSCOPIC)
--- NOTE | 2022-02-13 19:59 | CT_ITS ---
PROCEDURE INFORMATION: Exam: CT Head Without Contrast Exam date and time: 02/13/2022 8:08 PM Age: 71 years old Clinical indication: Dizziness; Additional info: Vertigo TECHNIQUE: Imaging protocol: Computed tomography of the head without contrast. Radiation optimization: All CT scans at this facility use at least one of these dose optimization techniques: automated exposure control; mA and/or kV adjustment per patient size (includes targeted exams where dose is matched to clinical indication); or iterative reconstruction. COMPARISON: No relevant prior studies available. FINDINGS: Brain: Patchy hypoattenuation in the periventricular deep white matter bilaterally. Cerebral ventricles: Enlargement of ventricles, sulci and cisterns bilaterally. Paranasal sinuses: Mucosal thickening within paranasal sinuses but no fluid levels are evident. Mastoid air cells: Visualized mastoid air cells are well aerated. Bones/joints: Unremarkable. No acute fracture. Soft tissues: Unremarkable. Vasculature: Calcification of carotid siphons and vertebrobasilar arterial systems. IMPRESSION: 1. No evidence for acute intracranial hemorrhage, midline shift or mass effect. 2. Cortical atrophy and chronic periventricular microangiopathy.
[2022-02-13 20:07] LABS: Appearance,Urine CLEAR (Clear); Blood, Urine Negative (Negative); Color,Urine YELLOW (Yellow); Glucose,Urine (UA) Negative (Negative); Ketones,Urine 1+ (Negative); Leukocyte Esterase,Urine 1+ (Negative); Nitrate,Urine Negative (Negative); Protein,Urine Negative (Negative); Specific Gravity, Urine 1.015 (1.005-1.030); Urobilinogen,Urine 0.2 EU/dl (0.2)
[2022-02-13 20:12] LABS: Bilirubin,Urine Negative (Negative)
[2022-02-13 20:13] LABS: Amorphous Sediment,Urine Trace /lpf
[2022-02-13 21:18] VITALS: BP 140/65; PULSE 68; RESP 18; TEMP 36.6; O2SAT 99
== END 2022-02-13 21:00 | disposition home or self-care (01) ==
LOC: UTC 17:01 → ER 18:09
PROVIDERS: Emergency Provider Emergency Medicine; PCP Internal Medicine Adolescent Medicine
DX: N30.90 Cystitis, unspecified without hematuria (principal); R42 Dizziness and giddiness; R11.2 Nausea with vomiting, unspecified; R51.9 Headache, unspecified; E78.5 Hyperlipidemia, unspecified; F41.9 Anxiety disorder, unspecified; Z79.899 Other long term (current) drug therapy
CPT/HCPCS: 70450; 71045; 80048; 81001; 84484; 85007; 85025; 87086; 93005; 96361; 96374; 96375; 99285; J0696; J2405

== ENCOUNTER → 2022-06-20 13:27 | Outpatient (CLI) | payer MEDICARE, SELFPAY ==
--- NOTE | 2022-06-20 13:33 | XR_ITS ---
FINAL REPORT CLINICAL HISTORY: distal fibula fx FINDINGS: AP, oblique, and lateral views of the right ankle were obtained. Comparison is made to an exam dated June 01, 2021. The previous distal fibular fracture has healed. There is no acute fracture or dislocation. The ankle mortise is intact. There is mild degenerative disease. Soft tissues are normal. IMPRESSION: No acute osseous abnormality of the right ankle. Reviewed, Interpreted and Dictated by Daniella Dominguez MD Transcribed by Atul Aleman Authenticated and [facility]
== END ==
PROVIDERS: PCP Internal Medicine Adolescent Medicine; Visit Provider Nurse Practitioner Family
DX: M25.571 Pain in right ankle and joints of right foot; S82.831A Other fracture of upper and lower end of right fibula, initial encounter for closed fracture
CPT/HCPCS: 73610

== ENCOUNTER → 2022-10-17 15:08 | Outpatient (CLI) | payer MEDICARE, SELFPAY ==
--- NOTE | 2022-10-17 15:19 | XR_ITS ---
FINAL REPORT CLINICAL HISTORY: LT SIDED BACK PAIN X 3 WEEKS FINDINGS: LUMBAR SPINE Five views demonstrate no acute fracture. There is moderate diffuse degenerative disc disease and facet arthropathy. There is no malalignment. IMPRESSION: No acute process. Reviewed, Interpreted and Dictated by Renzo Preston MD Transcribed by Lilly Hua Authenticated and [facility]
== END ==
PROVIDERS: PCP Internal Medicine Adolescent Medicine; Visit Provider Nurse Practitioner Family
DX: M54.50 Low back pain, unspecified (principal)
CPT/HCPCS: 72110

== ENCOUNTER 2022-11-02 12:44 | Outpatient (RCR) | payer MEDICARE, SELFPAY ==
--- NOTE | 2022-11-02 14:56 | HMH.PTOPEV ---
PT Outpatient Evaluation Rehab PT Outpatient Evaluation Start: 11/02/22 12:56 Freq: Status: Active Protocol: Document 11/02/22 12:56 SCOTTY (Rec: 11/02/22 14:55 SCOTTY [id number]) E-signed By Cleopatra Grande, PT Outpatient Therapy Subjective History Subjective History Pt is a 72 y/o female who reports onset of left-sided low back and lateral left thigh pain 6 weeks ago. Pt reports pain radiates to the anterior and lateral left thigh to the knee, denies more distal symtptoms. Pt reports intermittent tingling of the lateral thigh. Pt reports she had a lumbar spine xray on with impression of no acute fracture. There is moderate diffuse degenerative disc disease and facet arthropathy. There is no malalignment. Pt reports she received a steroid injection and later was prescribed steroid pills which she has finished which she states did not help with pain. Pt states she was also given exercises such as DKTC and clamshells which also did not help with pain. Pt reports pain is worse at night time and she is unable to get comfortable to sleep. Pt reports pain is aggravated by prolonged walking and standing. Pt reports pain abolishes with push mowing her lawn and pushing a cart at [email or web address]. Pt denies changes in b/b function, fever, n/v or night sweats. Pt denies further comorbidities to report. NANCY: 1750 Chief Complaint Pain,Paresthesia Symptoms Relieved By Heat,Ice Prior Functional Limitations None Current Functional Limitations Housework,Driving,Sleeping, Standing,Walking Symptom Description Constant but Variable Level of pain today (0-10) 3 Pain scale - at its best (0-10) 3 Pain scale - at its wor
== END 2022-11-02 12:45 | disposition home or self-care (01) ==
LOC: PT 12:44
PROVIDERS: PCP Internal Medicine Adolescent Medicine; Visit Provider Nurse Practitioner Family
DX: M54.50 Low back pain, unspecified (principal)
CPT/HCPCS: 97010; 97014; 97110; 97163; G0283

== ENCOUNTER 2023-07-07 11:02 | Outpatient (CLI) | payer MEDICARE, SELFPAY ==
--- NOTE | 2023-07-07 11:05 | XR_ITS ---
FINAL REPORT CLINICAL HISTORY: RADICULAR RT SHOULDER PAIN COMPARISON: None FINDINGS: RIGHT SHOULDER: 3 views of the right shoulder were obtained. There is no acute fracture or dislocation. There is mild degenerative change of both the acromioclavicular and glenohumeral joints. There is no soft tissue abnormality. IMPRESSION: No acute fracture Mild degenerative change of the acromioclavicular and glenohumeral joints. Reviewed, Interpreted and Dictated by Edilson Alvarez III, MD Transcribed by Edilia Gonzales Authenticated and [facility]
== END 2023-07-07 23:59 ==
LOC: RAD 11:03
PROVIDERS: PCP Nurse Practitioner Family; Visit Provider Nurse Practitioner Family
DX: M79.2 Neuralgia and neuritis, unspecified (principal); M25.511 Pain in right shoulder
CPT/HCPCS: 73030

== ENCOUNTER 2024-01-11 10:08 | Outpatient (CLI) | payer MEDICARE, SELFPAY ==
--- NOTE | 2024-01-11 10:15 | XR_ITS ---
PROCEDURE INFORMATION: Exam: XR Right Foot Exam date and time: 01/11/2024 10:26 AM Age: 73 years old Clinical indication: Pain; Foot; Right TECHNIQUE: Imaging protocol: Radiologic exam of the right foot. Views: 3 or more views. COMPARISON: CR XR FOOT RT MIN 3V 01/11/2024 10:26 AM FINDINGS: Bones/joints: Normal. Soft tissues: Normal. IMPRESSION: No acute findings.
== END 2024-01-11 23:59 | disposition home or self-care (01) ==
LOC: RAD 10:11
PROVIDERS: PCP Internal Medicine Adolescent Medicine; Visit Provider Nurse Practitioner Family
DX: M79.671 Pain in right foot (principal)
CPT/HCPCS: 73630

== ENCOUNTER 2024-06-07 11:20 | Outpatient (CLI) | payer MEDICARE, SELFPAY ==
[2024-06-07 11:24] LABS: Microscopic, Urine URINE MICROSCOPIC (MICROSCOPIC)
[2024-06-07 12:10] LABS: Appearance,Urine Clear (Clear); Color,Urine Yellow (Yellow); PH,Urine 5.5 (5.0-8.5)
[2024-06-07 12:11] LABS: Blood, Urine Negative (Negative); Glucose,Urine (UA) Negative (Negative); Ketones,Urine Negative (Negative); Nitrate,Urine Negative (Negative); Protein,Urine Negative (Negative); Specific Gravity, Urine 1.025 (1.005-1.030)
[2024-06-07 12:12] LABS: Bilirubin,Urine 3+ (Negative); Urobilinogen,Urine 0.2 EU/dl (0.2)
[2024-06-07 12:24] LABS: Bacteria,Urine Trace /lpf; Leukocyte Esterase,Urine 1+ (Negative); Squamous Epithelial Cell,Urine Occasional #/hpf (0-5); WBC,Urine Occasional #/hpf (0-3)
== END 2024-06-07 23:59 | disposition home or self-care (01) ==
LOC: LAB 11:20
PROVIDERS: PCP Nurse Practitioner Family; Visit Provider Nurse Practitioner Family
DX: R30.0 Dysuria (principal)
CPT/HCPCS: 81001; 87086